=== PATIENT | female | born 1975 | race Caucasian/White ===

== ENCOUNTER 2016-10-21 18:41 | Emergency (ER) ==
[2016-10-21 18:51] VITALS: BP 134/93; TEMP 101.1; BMI 27.3
--- NOTE | 2016-10-21 19:17 | ED.PDOC ---
General ED Provider: Dr. JAYDON RAMAN Chief Complaint: Urinary Problem Stated Complaint: Bilat back pain. Also pelvic area pain. Noticed dark urine 4 days ago. Developed back pain the next evening. States urine is now a little cloudy with a strong odor. Time Seen by Physician: 19:17 Mode of Arrival: Walk-In Information Source: Patient Exam Limitations: No limitations Primary Care Provider: PHONG GALINDO Nursing and Triage Documentation Reviewed and Agree: Yes Musculoskeletal Complaint Exam - Back Pain Complaint/Exam Mechanism of Injury: Reports: No known trauma Onset/Duration: 4 days Symptoms Are: Still present Timing: Constant Initial Severity: Mild Current Severity: Moderate Location: Reports: Discrete (right flank and suprapubic area. ) Character: Reports: Aching, Throbbing Aggravating: Reports: None Alleviating: Reports: None Associated Signs and Symptoms: Reports: Abdominal pain (suprapubic area ), Flank pain Related History: Denies: Similar episode, Occupational injury, Previous back injury TAD Risk Factors: Reports: None AAA Risk Factors: Reports: None Cauda Equina Risk Factors: Reports: None Epidural Abcess Risk Factors: Reports: None Related Surgical History: Reports: None Focal Tenderness: Yes Paraspinal Muscle Spasm: No Scoliosis: No Lordosis: No Kyphosis: No SLR Test: Right Negative, Left Negative Hip Motion Testing Pain: Right Negative, Left Negative Focal Weakness: Present: None Focal Sensory Loss: Present: None Gait: Present: Normal Back Picture: 1 - tenderness 2 - tenderness Differential Diagnoses: Renal Colic, Strain, Sprain, Other (Pyelonephitis ) Review of Systems - Review Of Systems Constitutional: Reports: Fever Eyes: Reports: No symptoms Ears, Nose, Mouth, Throat: Reports: No symptoms Respiratory: Reports: No symptoms Cardiac: Reports: No symptoms GI: Reports: No symptoms : Reports: Hematuria Musculoskeletal: Reports: Back pain All Other Systems: Reviewed and Negative Past Medical History - Past Medical History Endocrine: Reports: None Cardiovascular: Reports: None Respiratory: Reports: None Hematological: Reports: None Gastrointestinal: Reports: None Genitourinary: Reports: None Neuro/Psych: Reports: None Musculoskeletal: Reports: None Cancer: Reports: None Last Menstrual Period: may 2014 (Mirena IUD) - Surgical History General Surgical History: Reports: None - Family History Family History: Reports: None - Social History Smoking Status: Current every day smoker, Heavy tobacco smoker Hx Substance Use: No Alcohol Screening: Occasionally Physical Exam - Physical Exam Appearance: Ill-appearing Ill-appearing: Moderate Pain Distress: Severe Neck: Supple Respiratory: Airway patent, Breath sounds clear, Breath sounds equal, Respirations nonlabored Cardiovascular: RRR, Pulses normal, No rub, No murmur GI/: Soft, Nontender, No masses, Bowel sounds normal, No Organomegaly Musculoskeletal: Normal strength Skin: Warm Neurological: Sensation intact, Motor intact, Reflexes intact, Cranial nerves intact, Alert, Oriented Psychiatric: Anxious Critical Care Note - Critical Care Note Total Time (mins): 0 Course - Course Hematology/Chemistry: 10/21/16 19:33 10/21/16 19:33 Orders, Labs, Meds: Lab Review 10/21/16 10/21/16 19:00 19:33 WBC 18.09 H RBC 4.45 Hgb 13.5 Hct 40.7 MCV 91.5 MCH 30.3 MCHC 33.2 RDW Coeff of [place] 13.6 Plt Count 403 Immature Gran % (Auto) 0.4 Neut % (Auto) 80.1 Lymph % (Auto) 11.2 [place] % (Auto) 7.6 Eos % (Auto) 0.5 Baso % (Auto) 0.2 Immature Gran # (Auto) 0.1 Neut # 14.5 H Lymph # 2.0 [place] # 1.4 Eos # 0.1 Baso # 0.0 Sodium 135 L Potassium 3.5 Chloride 100 Carbon Dioxide 25 Anion Gap 13.5 BUN 9 Creatinine 0.68 Estimated GFR (MDRD) 96.00 BUN/Creatinine Ratio 13.23 Glucose 102 Calcium 8.8 Total Bilirubin 0.74 AST 13 L ALT 15 Alkaline Phosphatase 54 Total Protein 7.4 Albumin 3.6 Globulin 3.8 Albumin/Globulin Ratio 0.95 Urine Color Yellow Urine Clarity Cloudy Urine pH 6.0 Ur Specific [place] 1.015 Urine Protein 2+ Urine Glucose (UA) Negative Urine Ketones Negative Urine Blood 2+ Urine Nitrite Positive Urine Bilirubin Negative Urine Urobilinogen 1.0 Ur Leukocyte Esterase 3+ Urine Microscopic RBC 0-2 Urine Microscopic WBC 50-100 Ur Squamous Epith Cells Not present Urine Bacteria 1+ Urine Test Negative Orders Category Date Time Status ED IV/MEDIPORT/POWERPORT .ONCE EMERGENCY 10/21/16 19:18 Active BLOOD CULTURE Stat LAB 10/21/16 19:33 Completed CBC W/ AUTO DIFF Stat LAB 10/21/16 19:33 Completed COMPREHENSIVE METABOLIC PANEL Stat LAB 10/21/16 19:33 Completed URINALYSIS C & S IF INDICATED Stat LAB 10/21/16 19:00 Completed URINE CULTURE Stat LAB 10/21/16 19:39 Completed URINE Stat LAB 10/21/16 19:00 Completed 0.9 % Sodium Chloride [Saline Flush] MEDS 10/21/16 19:23 Discontinued 1 syr IVF PRN PRN Acetaminophen [Tylenol] MEDS 10/21/16 19:29 Discontinued 1,000 mg PO ONCE STA Levofloxacin/D5w [Levaquin] 100 ml MEDS 10/21/16 20:06 Discontinued IV .STK-MED Levofloxacin/D5w [Levaquin] 500 mg MEDS 10/21/16 19:44 Discontinued Premix 100 ml D5w 1 bag IV ONCE Morphine Sulfate [Morphine 4 mg/ml Syringe] MEDS 10/21/16 19:22 Discontinued 4 mg IVP ONCE STA Ondansetron HCl/Pf [Zofran 4 mg/2 ml] MEDS 10/21/16 19:22 Discontinued 4 mg IVP ONCE STA CT ABD/PEL WO RENAL STONE PROT Stat RADS 10/21/16 19:33 Completed Medications Discontinued Medications Generic Name Dose Route Start Last Admin Trade Name Freq PRN Reason Stop Dose Admin Acetaminophen 1,000 mg 10/21/16 19:29 10/21/16 20:21 Tylenol PO 10/21/16 19:30 1,000 mg ONCE STA Administration Levofloxacin/Dextrose 500 mg/ 100 mls @ 100 mls/hr 10/21/16 19:44 10/21/16 20 :19 Dextrose IV 10/21/16 20:43 100 mls/hr ONCE STA Administration Morphine Sulfate 4 mg 10/21/16 19:22 10/21/16 20:15 Morphine 4 Mg/Ml Syringe IVP 10/21/16 19:23 4 mg ONCE STA Administration Ondansetron HCl 4 mg 10/21/16 19:22 10/21/16 20:13 Zofran 4 Mg/2 Ml IVP 10/21/16 19:23 4 mg ONCE STA Administration Sodium Chloride 1 syr 10/21/16 19:23 10/21/16 20:19 Saline Flush IVF 1 syr PRN PRN Administration To flush IV Vital Signs: Temp Pulse Resp BP Pulse Ox 10/21/16 18:43 101.1 F H 100 H 20 134/93 H 94 L Departure - Departure Time of Disposition: 21:30 Disposition: HOME SELF-CARE Discharge Problem: Pyelonephritis Instructions: Urinary Tract Infection in Women (ED) Condition: Stable Pt referred to PMD for follow-up: Yes Additional Instructions: Push fludis Take Antibiotics as prescribed. Take Tylenol or Motrin as needed for fever. Follow up with [facility] in 2 days Return if you cannot take you medications. Prescriptions: Hydrocodone/Acetaminophen [[place] 5-325 Tablet] 1 tab PO Q6HR PRN #20 tablet PRN Reason: PAIN Levofloxacin [Levaquin] 500 mg PO DAILY #10 tablet Allergies/Adverse Reactions: Allergies codeine Adverse Reaction (Verified 10/21/16 18:51) Home Medications: Ambulatory Orders Levonorgestrel [Mirena] 1 each IY d 02/01/16 Hydrocodone/Acetaminophen [[place] 5-325 Tablet] 1 tab PO Q6HR PRN #20 tablet 07/28 Levofloxacin [Levaquin] 500 mg PO DAILY #10 tablet 10/21/16 Disposition Discussed With: Patient, Family
[2016-10-21] MEDS ORDERED: ZOFRAN 4 MG/2 ML IVP STA (19:22)
[2016-10-21] MEDS ORDERED: MORPHINE 4 MG/ML SYRINGE IVP STA (19:22)
[2016-10-21] MEDS ORDERED: TYLENOL PO STA (19:29)
[2016-10-21 19:32] LABS: BILIRUBIN,URINE Negative (NEGATIVE); KETONES,URINE Negative (NEGATIVE); LEUKOCYTE ESTERASE ,URINE 3+ (NEGATIVE); NITRITE,URINE Positive (NEGATIVE); PROTEIN,URINE 2+ (NEGATIVE); URINE, BLOOD 2+ (NEGATIVE)
[2016-10-21 19:38] LABS: ADD URINE MICROSCOPIC YES
[2016-10-21 19:39] LABS: BACTERIA,URINE 1+ (NOT PRESENT); URINE PREGNANCY INTERNAL QC INTERNAL QC VALID
[2016-10-21 19:42] LABS: BASOPHILS % (AUTO) 0.2 % (0.0-3.0); EOSINOPHILS # (AUTO) 0.1 K/ul (0.0-0.7); EOSINOPHILS % (AUTO) 0.5 % (0.0-7.0); HEMATOCRIT 40.7 % (37.0-47.0); HEMOGLOBIN 13.5 g/dl (12.0-16.0); IMMATURE GRANULOCYTE % (AUTO) 0.4 % (0.0-5.0); LYMPHOCYTES % (AUTO) 11.2 (10.0-50.0); MEAN CORPUSCULAR HEMOGLOBIN 30.3 pg (27.0-31.0); MEAN CORPUSCULAR HGB CONC 33.2 (31.8-35.4); MEAN CORPUSCULAR VOLUME 91.5 fl (81.0-99.0); MONOCYTES # (AUTO) 1.4 K/uL (0.4-2.0); MONOCYTES % (AUTO) 7.6 (0-10); NEUTROPHILS # (AUTO) 14.5 K/ul (2.0-6.9); NEUTROPHILS % (AUTO) 80.1; PLATELET COUNT 403 10^3/uL (140-440); RED BLOOD COUNT 4.45 10^6/ul (4.20-5.40); WHITE BLOOD COUNT 18.09 K/ul (4.6-10.2)
[2016-10-21] MEDS ORDERED: LEVAQUIN 500 MG in PREMIX 100 ML D5W 1 BAG IV STA (19:44)
[2016-10-21 20:02] LABS: ALBUMIN 3.6 g/dL (3.4-5.0); ALBUMIN/GLOBULIN RATIO 0.95; ANION GAP 13.5; BILIRUBIN,TOTAL 0.74 mg/dL (0.00-1.20); BUN/CREATININE RATIO 13.23; CALCIUM 8.8 mg/dL (8.2-10.2); CREATININE 0.68 mg/dL (0.60-1.30); POTASSIUM 3.5 mmol/L (3.5-5.10); TOTAL PROTEIN 7.4 g/dL (6.4-8.2)
[2016-10-21] MEDS ORDERED: LEVAQUIN 100 ML IV ONE (20:06)
--- NOTE | 2016-10-21 20:29 | CT ---
EXAM: CT abdomen pelvis without contrast HISTORY: Back/flank pain. COMPARISON: None TECHNIQUE: CT abdomen pelvis performed without intravenous contrast. Coronal and sagittal reformat jovani images obtained. FINDINGS: Mild subsegmental atelectasis lung bases. No acute abnormalities of the bones. Mild deg enerative change in the spine. Heart normal in size. Evaluation organ parenchyma limited without c ontrast. Liver appears normal. Gallbladder appears normal. Pancreas appears normal. Spleen appea rs normal. Adrenals appear normal. No hydronephrosis or nephrolithiasis. Question mild right benji nephric stranding. No calculi visualized in the normal course of the ureters. Bladder unremarkable . Stomach appears normal. No dilated loops small bowel. Appendix appears normal. Colon unremark able. There is a intrauterine device present with abnormal configuration with angled positioning an d the prong appearing to minimally penetrate through the myometrium on axial image 130 and coronal i mage 33. Small fat-containing umbilical hernia. IMPRESSION: 1. No hydronephrosis or nephrolithiasis. Question right perinephric stranding, nonspecific. Recomm end clinical correlation for urinary tract infection. 2. Abnormal positioning and intrauterine device as described, appearing to minimally penetrate thro ugh the myometrium. Report faxed at time of dictation.
== END 2016-10-21 22:23 | disposition home or self-care (01) ==
LOC: ED 18:41
DX: N12 Tubulo-interstitial nephritis, not specified as acute or chronic (principal); F17.210 Nicotine dependence, cigarettes, uncomplicated; Z79.899 Other long term (current) drug therapy
CPT/HCPCS: 36415; 74176; 80053; 81001; 81025; 85025; 87040; 87086; 87186; 96365; 96375; 99283

== ENCOUNTER 2019-01-04 13:29 | Emergency (ER) ==
[2019-01-04 13:34] VITALS: BP 129/87; TEMP 97.7; BMI 23.6
--- NOTE | 2019-01-04 13:56 | ED.PDOC ---
General ED Provider: Dr. BHUMI HESS Chief Complaint: Sore Throat Stated Complaint: Sore throat; Tonsils inflamed and painful; diffiulty with swallowing. Time Seen by Physician: 13:40 Mode of Arrival: Walk-In Information Source: Patient Exam Limitations: No limitations Primary Care Provider: PHONG GALINDO Nursing and Triage Documentation Reviewed and Agree: Yes Does patient meet sepsis criteria?: No System Inflammatory Response Syndrome: Not Applicable Sepsis Protocol: For patient's 13 years and over: Temp is 96.8 and below OR 101 and greater Pulse >90 BPM Resp >20/minute Acutely Altered Mental Status Are patient's symptoms suggestive of a new infection, such as: -Pneumonia -Skin, Soft Tissue -Endocarditis -UTI -Bone, Joint Infection -Implantable Device -Acute Abdominal Infection -Wound Infection -Meningitis -Blood Stream Catheter Infection -Unknown EENT Complaint Exam - Throat Complaint/Exam Onset/Duration: 3 days Symptoms Are: Still present Timimg: Constant Initial Severity: Moderate Current Severity: Moderate Aggravating: Reports: Eating Alleviating: Reports: None Associated Signs and Symptoms: Reports: Fever, Dysphagia, Nasal congestion. Denies: Drooling, Foreign body sensation, Chills, Cough, Wheezing, Hoarseness, Sinus discomfort, Difficulty breathing, Lethargy, Irritability, Decreased activity, Vomiting, Diarrhea, Decreased hearing, Ear drainage Uvula Midline: Yes Isabelle-tonsillar Fluctuence: Yes Scarlatinaform Rash Present: No Lesions: Absent: Pharynx Exanthem: Absent: Pharynx Vesicles: Absent: Pharynx Stridor Present: No Sinus Tenderness Present: No Tonsillar Hypertrophy Present: Yes Tonsillar Exudate Present: Yes Isabelle-tonsillar Swelling Present: Yes Adenopathy Present: Yes Splenomegaly Present: No Differential Diagnoses: Pharyngitis, Tonsillitis Review of Systems - Review Of Systems Constitutional: Reports: No symptoms Eyes: Reports: No symptoms Ears, Nose, Mouth, Throat: Reports: No symptoms, Throat pain, Throat swelling Respiratory: Reports: No symptoms Cardiac: Reports: No symptoms GI: Reports: No symptoms : Reports: No symptoms Musculoskeletal: Reports: No symptoms Skin: Reports: No symptoms Neurological: Reports: No symptoms Endocrine: Reports: No symptoms Hematologic/Lymphatic: Reports: No symptoms All Other Systems: Reviewed and Negative Past Medical History - Past Medical History Endocrine: Reports: None Cardiovascular: Reports: None Respiratory: Reports: None Hematological: Reports: None Gastrointestinal: Reports: None Genitourinary: Reports: None Neuro/Psych: Reports: None Musculoskeletal: Reports: None Cancer: Reports: None Last Menstrual Period: mirena - Surgical History General Surgical History: Reports: None - Family History Family History: Reports: None - Social History Smoking Status: Current every day smoker, Heavy tobacco smoker Hx Substance Use: No Alcohol Screening: Occasionally Physical Exam - Physical Exam Appearance: Well-appearing, No pain distress, Well-nourished Eyes: PAUL, EOMI, Conjunctiva clear ENT: Ears normal, Nose normal, Oropharynx normal Respiratory: Airway patent, Breath sounds clear, Breath sounds equal, Respirations nonlabored Cardiovascular: RRR, Pulses normal, No rub, No murmur GI/: Soft, Nontender, No masses, Bowel sounds normal, No Organomegaly Musculoskeletal: Normal strength, ROM intact, No edema, No calf tenderness Skin: Warm, Dry, Normal color Neurological: Sensation intact, Motor intact, Reflexes intact, Cranial nerves intact, Alert, Oriented Psychiatric: Affect appropriate, Mood appropriate Critical Care Note - Critical Care Note Total Time (mins): 0 Course - Course Orders, Labs, Meds: Orders Category Date Time Status FLU A/B MOLECULAR Stat LAB 01/04/19 13:39 Ordered RAPID STREP SCREEN [MOLECULAR GROUP A STREP] Stat LAB 01/04/19 13:39 Ordered Vital Signs: Temp Pulse Resp BP Pulse Ox 01/04/19 13:30 97.7 F 91 H 18 129/87 96 Departure - Departure Time of Disposition: 14:10 Disposition: HOME SELF-CARE Discharge Problem: Acute streptococcal tonsillitis Instructions: Tonsillitis (ED) Condition: Good Pt referred to PMD for follow-up: Yes IPMP verified?: No Additional Instructions: Maintain adequate oral fluids intake Advance diet per tolerance Tylenol for pain or temp above 101 degrees Rest Amoxicillin 875 mg twice daily for 10 days as directed See PCP in 5-8 days as needed for follow up Prescriptions: Amoxicillin 875 mg PO BID #20 tablet Allergies/Adverse Reactions: Allergies codeine Adverse Reaction (Verified 01/04/19 13:34) Home Medications: Ambulatory Orders Levonorgestrel [Mirena] 1 each IY d 02/01/16 Amoxicillin 875 mg PO BID #20 tablet 01/04/19 Disposition Discussed With: Patient
== END 2019-01-04 14:19 | disposition home or self-care (01) ==
LOC: ED 13:29
DX: J02.9 Acute pharyngitis, unspecified (principal); R50.9 Fever, unspecified; R13.10 Dysphagia, unspecified; R09.81 Nasal congestion; J03.00 Acute streptococcal tonsillitis, unspecified
CPT/HCPCS: 87502; 87651; 99283